=== PATIENT | female | born 1990 | race Caucasian/White ===

== ENCOUNTER 2017-02-17 08:40 | Emergency (ER) | payer OTHER ==
[2017-02-17 08:52] VITALS: BP 106/65
[2017-02-17] MEDS ORDERED: Tetan/Diph/Pertus SYR(Tdap)* 0.5 ML SYR(BOOSTRIX) use SYR IM ONE (09:03)
--- NOTE | 2017-02-17 09:09 | UC ---
Skin Complaint HPI - HPI Summary HPI Summary: puncture wound plantar right foot x 1 day. stepped on a plug with her right foot, broke the skin + pain, bleeding - History of Current Complaint Chief Complaint: UCLaceration Time Seen by Provider: 02/17/17 08:46 Stated Complaint: RIGHT FOOT INJURY Hx Obtained From: Patient Hx Last Menstrual Period: "two to three weeks ago" ?: No Onset/Duration: Sudden Onset, Lasting Days - 1, Still Present Timing: Constant Onset Severity: Moderate Current Severity: Moderate Location: Discrete - plantar right foot Character: Pain, Redness, Painful Aggravating: Touch, Other - walking Alleviating: Nothing Associated Signs & Symptoms: Positive: Tenderness. Negative: Weakness, Fever, Chills, Drainage - Allergy/Home Medications Allergies/Adverse Reactions: Allergies Allergy/AdvReac Type Severity Reaction Status Date / Time No Known Allergies Allergy Verified 02/17/17 08:47 Home Medications: Home Medications Phendimetrazine Tartrate 105 mg PO BID 02/17/17 [History Confirmed 02/17/17] Review of Systems Constitutional: Negative Skin: Negative Eyes: Negative ENT: Negative All Other Systems Reviewed And Are Negative: Yes PMH/Surg Hx/FS Hx/Imm Hx Previously Healthy: Yes Other History Of: Negative For: HIV, Hepatitis B, Hepatitis C, Anticoagulant Therapy - Surgical History Surgical History: Yes Surgery Procedure, Year, and Place: R hand surgery. - Family History Known Family History: Positive: Unknown Negative: Cardiac Disease, Hypertension, Respiratory Disease - Social History Alcohol Use: Occasionally Substance Use Type: None Substance Use Comment - Amount & Last Used: 02/04/14 Smoking Status (MU): Heavy Every Day Tobacco Smoker Type: Cigarettes Amount Used/How Often: 1/2 - 1 PPD Length of Time of Smoking/Using Tobacco: Since Age 16 Household Exposure Type: Cigarettes - Immunization History Most Recent Influenza Vaccination: Not the 2017/2017 Season Most Recent Tetanus Shot: Unknown Physical Exam Triage Information Reviewed: Yes Appearance: Well-Appearing, No Pain Distress, Well-Nourished Vital Signs: Initial Vital Signs Temp 98.4 F 02/17/17 08:45 Pulse 102 02/17/17 08:45 Resp 16 02/17/17 08:45 BP 106/65 02/17/17 08:45 Pulse Ox 99 02/17/17 08:45 Vital Signs Reviewed: Yes Eye Exam: Normal Eyes: Positive: Conjunctiva Clear ENT: Positive: Normal ENT inspection, Hearing grossly normal, Pharynx normal Neck: Positive: Supple, Nontender, No Lymphadenopathy Respiratory: Positive: Chest non-tender, Lungs clear, Normal breath sounds Cardiovascular: Positive: RRR, No Murmur, Pulses Normal Skin: Positive: Other - Puncture wound plantar rihg foot x 2 , minimal bleeding , the puncture wounds are wide enough to do deep irrigation Course/Dx - Diagnoses Provider Diagnoses: puncture wound right foot Discharge - Discharge Plan Condition: Stable Disposition: HOME Patient Education Materials: Acute Wound Care (ED) Referrals: Shaneka Seth MD [Primary Care Provider] - If Needed
== END 2017-02-17 09:14 | disposition home or self-care (01) ==
LOC: UCCORT 08:40
DX: S91.331A Puncture wound without foreign body, right foot, initial encounter (principal); W22.8XXA Striking against or struck by other objects, initial encounter; Y93.9 Activity, unspecified; Y92.9 Unspecified place or not applicable; F17.210 Nicotine dependence, cigarettes, uncomplicated; Z23 Encounter for immunization
CPT/HCPCS: 90471; 90715; 99212; G0463

== ENCOUNTER 2017-06-26 08:50 | Emergency (ER) | payer OTHER ==
[2017-06-26 09:14] VITALS: BP 120/69
--- NOTE | 2017-06-26 09:49 | UC ---
Hand/Wrist HPI - HPI Summary HPI Summary: JAMMED RIGHT THUMB ON DRESSER LAST NIGHT. NOW HAS PAIN AT [facility]. NO SWELLING OR BRUISING. - History Of Current Complaint Chief Complaint: UCUpperExtremity Stated Complaint: RT THUMB INJ Time Seen by Provider: 06/26/17 09:25 Hx Obtained From: Patient Hx Last Menstrual Period: 06/22/17 Onset/Duration: Sudden Onset Pain Intensity: 6 Pain Scale Used: 0-10 Numeric Character Of Pain: Sharp Aggravating Factor(s): Movement Alleviating Factor(s): Rest Associated Signs And Symptoms: Negative: Swelling, Redness, Bruising Related History: Dominant Hand Right - Allergies/Home Medications Allergies/Adverse Reactions: Allergies Allergy/AdvReac Type Severity Reaction Status Date / Time No Known Allergies Allergy Verified 06/26/17 09:14 PMH/Surg Hx/FS Hx/Imm Hx Respiratory History: Asthma Other History Of: Negative For: HIV, Hepatitis B, Hepatitis C, Anticoagulant Therapy - Surgical History Surgical History: Yes Surgery Procedure, Year, and Place: R hand surgery. - Family History Known Family History: Negative: Cardiac Disease, Hypertension, Respiratory Disease - Social History Alcohol Use: Occasionally Substance Use Type: None Substance Use Comment - Amount & Last Used: 02/04/14 Smoking Status (MU): Heavy Every Day Tobacco Smoker Type: Cigarettes Amount Used/How Often: 1/2 - 1 PPD Length of Time of Smoking/Using Tobacco: Since Age 16 Household Exposure Type: Cigarettes - Immunization History Most Recent Influenza Vaccination: Not the 2017/2017 Season Most Recent Tetanus Shot: Unknown Review of Systems Constitutional: Negative Skin: Negative Respiratory: Negative Cardiovascular: Negative Gastrointestinal: Negative Musculoskeletal: Arthralgia All Other Systems Reviewed And Are Negative: Yes Physical Exam Triage Information Reviewed: Yes Appearance: Well-Appearing, No Pain Distress, Well-Nourished Vital Signs: Initial Vital Signs Temp 98.6 F 06/26/17 09:11 Pulse 94 06/26/17 09:11 Resp 16 06/26/17 09:11 BP 120/69 06/26/17 09:11 Pulse Ox 100 06/26/17 09:11 Vital Signs Reviewed: Yes Eyes: Positive: Conjunctiva Clear ENT: Positive: Hearing grossly normal Neck: Positive: Supple Respiratory: Positive: No respiratory distress, No accessory muscle use Cardiovascular: Positive: Pulses Normal Abdomen Description: Positive: Soft Musculoskeletal: Positive: ROM Intact, No Edema, Other: Neurological: Positive: Alert Psychological: Positive: Age Appropriate Behavior Skin: Negative: rashes Diagnostics - Radiology RIGHT THUMB XRAY Xray Interpretation: No Acute Changes Radiology Interpretation Completed By: Radiologist Hand/Wrist Course/Dx - Differential Dx/Diagnosis Provider Diagnoses: RIGHT THUMB SPRAIN Discharge - Discharge Plan Condition: Stable Disposition: HOME Patient Education Materials: Finger Sprain (ED) Referrals: Shaneka Seth MD [Medical Doctor] - If Needed Additional Instructions: NO FRACTURE OR DISLOCATION SEEN ON XRAY TODAY. WEAR THE LILIAM FOR COMPRESSION AND SUPPORT. REST, ICE, OTC MEDS NEEDED FOR DISCOMFORT. SEEK FOLLOW-UP WITH YOUR PCP IF NOT IMPROVING EXPECTED OVER THE NEXT 1-2 WEEKS.
--- NOTE | 2017-06-26 09:52 | RAD ---
Indication: RIGHT thumb pain following jamming injury last night. Comparison: No relevant prior exams available on the [facility] for comparison. Technique: AP, lateral, and oblique views RIGHT thumb. REPORT AND IMPRESSION: Normal articular alignment. Negative for fracture. Preserved joint spaces. Mild distal soft tissue swelling.
== END 2017-06-26 09:58 | disposition home or self-care (01) ==
LOC: UCCORT 08:50
DX: S63.601A Unspecified sprain of right thumb, initial encounter (principal); W22.09XA Striking against other stationary object, initial encounter; Y93.9 Activity, unspecified; Y92.003 Bedroom of unspecified non-institutional (private) residence as the place of occurrence of the external cause; Z72.89 Other problems related to lifestyle; Z72.0 Tobacco use
CPT/HCPCS: 99211; G0463

== ENCOUNTER 2018-10-11 07:31 | Emergency (ER) | payer OTHER ==
[2018-10-11 07:47] VITALS: BP 118/84
--- NOTE | 2018-10-11 08:22 | ED ---
GI/ HPI - HPI Summary HPI Summary: 27 yr old female with intermittent epigastric pain that comes and goes. SHe is pain free now. She has had acid feeling that is worse at night. she states laying flat makes it worse, and sitting up better. She is a half a pack a day smoker. The patient also complains of some faint hives on the lateral left upper thigh and the left arm. They are itchy. She denies dizziness, diaphoresis, SOB. She denies pleuritic chest pain. She denies tongue or lip swelling. SHe denies any family history of premature or medical issues. - History of Current Complaint Chief Complaint: UCAbdominalPain Time Seen by Provider: 10/11/18 07:48 Stated Complaint: STOMACH PAIN,RASH Hx Last Menstrual Period: "I don't know. ... Florecita spotting this morning." Pain Intensity: 6 - Allergy/Home Medications Allergies/Adverse Reactions: Allergies Allergy/AdvReac Type Severity Reaction Status Date / Time No Known Allergies Allergy Verified 10/11/18 07:43 Home Medications: Home Medications Etonogestrel [Nexplanon] 68 mg IMPLANT ONCE 10/11/18 [History Confirmed 10/11/18 ] PMH/Surg Hx/FS Hx/Imm Hx Endocrine/Hematology History: Denies: Hx Anticoagulant Therapy, Hx Diabetes, Hx Thyroid Disease Cardiovascular History: Denies: Hx Congestive Heart Failure, Hx Deep Vein Thrombosis, Hx Hypertension , Hx Myocardial Infarction, Hx Pacemaker/ICD Respiratory History: Reports: Hx Asthma Denies: Hx Chronic Obstructive Pulmonary Disease (COPD), Hx Lung Cancer, Hx Pneumonia, Hx Pulmonary Embolism GI History: Denies: Hx Gall Bladder Disease, Hx Gastrointestinal Bleed, Hx Ulcer, Hx Urosepsis History: Denies: Hx Kidney Stones, Hx Renal Disease Neurological History: Denies: Hx Dementia, Hx Migraine, Hx Seizures, Hx Transient Ischemic Attacks (TIA) Psychiatric History: Reports: Hx Anxiety - She has been prescribed medication for this (Zoloft). Denies: Hx Depression, Hx Schizophrenia, Hx Bipolar Disorder - Surgical History Surgery Procedure, Year, and Place: R hand surgery. Infectious Disease History: No Infectious Disease History: Denies: Traveled Outside the [place] in Last 30 Days - Family History Known Family History: Positive: None Negative: Cardiac Disease, Hypertension, Respiratory Disease - Social History Occupation: Employed Full-time Alcohol Use: None Substance Use Type: Reports: None Substance Use Comment - Amount & Last Used: 02/04/14 Smoking Status (MU): Heavy Every Day Tobacco Smoker Type: Cigarettes Amount Used/How Often: 1/2 PPD Length of Time of Smoking/Using Tobacco: Since Age 16 Review of Systems Constitutional: Negative Positive: Abdominal Pain Positive: Rash All Other Systems Reviewed And Are Negative: Yes Physical Exam Triage Information Reviewed: Yes Vital Signs On Initial Exam: Initial Vitals Temp Pulse Resp BP Pulse Ox 98.3 F 104 18 118/84 98 10/11/18 07:41 10/11/18 07:41 10/11/18 07:41 10/11/18 07:41 10/11/18 07:41 Vital Signs Reviewed: Yes Appearance: Positive: Well-Appearing, No Pain Distress Skin: Positive: Other - faint hives on the left upper thigh and left arm. Eyes: Positive: EOMI ENT: Positive: Pharynx normal, Uvula midline. Negative: Nasal congestion, Muffled voice, Hoarse voice Neck: Positive: Nontender Respiratory/Lung Sounds: Positive: Clear to Auscultation, Breath Sounds Present Cardiovascular: Positive: RRR. Negative: Murmur Abdomen Description: Negative: Distended Musculoskeletal: Positive: Strength/ROM Intact Neurological: Positive: Sensory/Motor Intact, Alert, Oriented to Person Place, Time, CN Intact II-III, Normal Gait, Speech Normal Psychiatric: Positive: Normal - Da Coma Scale Best Eye Response: 4 - Spontaneous Best Motor Response: 6 - Obeys Commands Best Verbal Response: 5 - Oriented Coma Scale Total: 15 Diagnostics - Vital Signs Vital Signs Temp Pulse Resp BP Pulse Ox 10/11/18 07:41 98.3 F 104 18 118/84 98 - Laboratory Lab Statement: Any lab studies that have been ordered have been reviewed, and results considered in the medical decision making process. - EKG 10/11/2018 Cardiac Rate: NL EKG Rhythm: Sinus Rhythm ST Segment: Normal Ectopy: None EKG Comparison: No Significant Change GIGU Course/Dx - Course Course Of Treatment: 27 yr old female with faint urticaria and also having epigastric pain. Her EKG is ok. She will drive to the ER for further work up. She was offered an ambulance but declined. - Diagnoses Provider Diagnoses: Epigastric pain, Urticaria Discharge - Sign-Out/Discharge Documenting (check all that apply): Patient Departure All imaging exams completed and their final reports reviewed: No Studies - Discharge Plan Condition: Good Disposition: HOME-RECOMMEND TO ED Patient Education Materials: Urticaria (ED), Epigastric Pain (ED) Referrals: No Primary Care Phys,NOPCP [Primary Care Provider] - [facility] [place] [facility] REFERRAL [Outside] - 2 Days Additional Instructions: Please go to the ER for further work up of your abdominal pain. DO not delay. YOu have been offered an ambulance but have stated you are driving yourself. - Billing Disposition and Condition Condition: GOOD Disposition: Home-Recommend to ED
== END 2018-10-11 08:28 | disposition home health service (06) ==
LOC: UCCORT 07:31
DX: R10.13 Epigastric pain (principal); L50.9 Urticaria, unspecified; F17.210 Nicotine dependence, cigarettes, uncomplicated; J45.909 Unspecified asthma, uncomplicated; F41.9 Anxiety disorder, unspecified
CPT/HCPCS: 93005; 99212; G0463